=== PATIENT | female | born 1975 | race Caucasian/White ===

== ENCOUNTER 2016-06-29 12:39 | Emergency (ER) | payer OTHER ==
[~2016-06-29 12:39] MED LIST: CLEOCIN300 MG PO; CYMBALTA60 PO; FLAG500TAB PO; FLORASTOR250 MG PO; IBU400 PO; JUNEL 1/20 PO; LEVSINTAB PO; MINIVELLE1 EAC1 TOP; MOTRIN IB200 MG PO; PRILOSEC40 MG PO; PROAIR HFA INH; VITAMIN B-121000 MC1 SL; WELLSR150 PO; ZOFRAN4 PO
== END 2016-06-29 13:00 | disposition home or self-care (01) ==
LOC: ER 12:39
DX: L23.9 Allergic contact dermatitis, unspecified cause (principal); J45.909 Unspecified asthma, uncomplicated; K21.9 Gastro-esophageal reflux disease without esophagitis; F32.9 Major depressive disorder, single episode, unspecified; F41.9 Anxiety disorder, unspecified; Z88.0 Allergy status to penicillin; Z88.2 Allergy status to sulfonamides; Z88.5 Allergy status to narcotic agent; Z88.6 Allergy status to analgesic agent; Z88.1 Allergy status to other antibiotic agents; Z91.040 Latex allergy status; Z79.899 Other long term (current) drug therapy
CPT/HCPCS: 96372; 99284